=== PATIENT | male | born 1940 | race Caucasian/White ===

== ENCOUNTER 2016-08-10 10:33 | Inpatient (IN) ==
[2016-08-10] MEDS ORDERED: ASPIRIN PO STA (10:45)
[2016-08-10] MEDS ORDERED: ASPIRIN ONE (10:46)
[2016-08-10 11:03] LABS: MANUAL DIFF NEEDED? NO
[2016-08-10 11:11] LABS: BASO% 0.9 % (0.0-0.8); EOS# 0.25 X1000 (0.0-0.7); EOS% 3.9 % (0.0-10.0); HEMATOCRIT 36.4 % (42.0-52.0); HEMOGLOBIN 10.5 g/dL (14.0-18.0); IMM GRAN# 0.01 X1000 (0.0-0.04); IMM GRAN% 0.2 % (0.0-0.5); LYMPH# 1.82 X1000 (1.2-3.4); LYMPH% 28.4 % (20.5-51.1); MCH 21.3 PG (27-31); MCHC 28.8 g/dL (33-37); MCV 73.7 FL (81-99); MONO# 0.78 X1000 (0.11-0.59); MONO% 12.2 % (1.7-9.3); MPV 9.1 FL (7.4-10.4); NEUT% 54.4 % (42.2-75.2); PLT 210 X1000 (130-400); RBC 4.94 XMIL (4.7-6.1)
[2016-08-10 11:21] LABS: INR 1.05 (0.86-1.15)
--- NOTE | 2016-08-10 11:27 | EKG Report ---
Test Performed on : 08/10/2016 10:36:34 AM Test Reason : CP Blood Pressure : / mmHG Vent. Rate : 081 BPM Atrial Rate : 081 BPM P-R Int : 148 ms QRS Dur : 106 ms QT Int : 426 ms P-R-T Axes : 063 046 002 degrees QTc Int : 494 ms Normal sinus rhythm. Inferior infarct (cited on or before 20-OCT-2010) Abnormal ECG When compared with ECG of 20-OCT-2010 14:22, QT has lengthened Unconfirmed Result
[2016-08-10 11:35] LABS: ALBUMIN 4.2 g/dL (3.5-5.0); CALCIUM 8.8 mg/dL (8.8-10.2); POTASSIUM 4.3 mmol/L (3.5-5.1); TOTAL BILIRUBIN 0.4 mg/dL (0.20-1.00); TOTAL PROTEIN 6.5 g/dL (6.3-8.3)
--- NOTE | 2016-08-10 11:45 | Diag Imaging Result Document ---
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 Overall, there has been no significant change. IMPRESSION: No acute disease.
--- NOTE | 2016-08-10 12:26 | PROVIDER DOCUMENTATION ---
This chart was entered by Ed Liu Scribe, acting as scribe for Lety Koch MD. HPI-Chest Pain - General Chief Complaint: Chest Pain Stated Complaint: CHEST PAIN Time Seen by Provider: 08/10/16 10:50 Source: patient Allergies/Adverse Reactions: Patient Allergies Allergy/AdvReac Type Severity Reaction Status Date / Time Penicillins Allergy HIVES Verified 08/10/16 10:39 Tetanus Vaccines and Toxoid Allergy HIVES Verified 08/10/16 10:39 Home Medications: Home Medication List Medication Instructions Recorded Confirmed Last Taken Type Clopidogrel [Plavix] 75 mg PO DAILY 08/10/16 08/10/16 Unknown History Diclofenac Na D.r. [Voltaren] 75 mg PO BID 08/10/16 08/10/16 Unknown History Metoprolol Succinate E.r. [Toprol 100 mg PO DAILY 08/10/16 08/10/16 Unknown History Xl] Pantoprazole [Protonix] 40 mg PO DAILY 08/10/16 08/10/16 Unknown History SIMVAstatin [Zocor] 40 mg PO HS 08/10/16 08/10/16 Unknown History Valsartan/Hydrochlorothiazide 1 tab PO DAILY 08/10/16 08/10/16 Unknown History [Valsartan-Hctz 160-12.5 mg Tab] - History of Present Illness-CP Nature of Presenting Problem: Cardiac Stent and DE history presents to er with cc of chest pain. Reports first episode happenend on wednesday resolved after one nitro. Reports woke up this am at 0400 having sharp pressure with diaphoresis took 2 nitro resolved until 0600 came back and then pt took 1 more nitro and reports pain has still resovled. Last cardiac cath 12 years ago. Last stress test 12 years ago. Denies sob,n,v. Location: reports: central Chest Pain Radiation: reports: no radiation Quality of Pain: reports: pressure, sharp Severity in ED: mild Onset/Duration: 2 days ago Timing: intermittent Nitro Today/Relief: 0.4 mg x 3 Aspirin Treatment Today: no aspirin today Similar Symptoms Previously?: Yes Recently Seen Here or By Another Healthcare Provider: No Review of Systems - Adult - REVIEW OF SYSTEMS - ADULT Constitutional: denies: chills, fever, fatique Eyes: reports: no symptoms reported Ears, Nose, Mouth & Throat: reports: no symptoms reported Cardiovascular: reports: chest pain. denies: irregular heart rate, orthopnea, syncope Respiratory: reports: no symptoms reported Gastrointestinal: denies: abdominal pain, diarrhea, nausea, vomiting Genitourinary: reports: no symptoms reported Musculoskeletal: reports: no symptoms reported Integumentary: reports: no symptoms reported Neurological: reports: no symptoms reported Psychiatric: reports: no symptoms reported Endocrine: reports: no symptoms reported Hematologic/Lymphatic: reports: no symptoms reported Allergic/Immunologic: reports: no symptoms reported All Other Systems: Reviewed and Negative Past History - Adult - PAST MEDICAL HISTORY-ADULT Review of Records: reports: Nursing Assessment Review, Medications Reviewed Cardiovascular: reports: HTN, hyperlipidemia, DE Respiratory: reports: COPD Endocrine/Immune: reports: Diabetes - PRIOR SURGERIES/PROCEDURES Surgical/Procedure History: reports: cardiac stent - IMMUNIZATION STATUS Childhood Immunizations: See Nurse Assessment Flu Vaccine: See Nurse Assessment - SOCIAL HISTORY Smoking: cigarettes, less than 1 pack/day Provider spent 3-5 mins advising pt. on dangers of tobacco.: Discussed manners to quit use, and f/u contacts for add'l counseling. Substance Use: none/never Physical Exam-General - PHYSICAL EXAM-ADULT Initial Vital Signs Reviewed: Yes - CONSTITUTIONAL General Appearance: appears well, alert, no apparent distress - EYES Eyes: PERRL/EOMI - HEAD, EARS, NOSE, MOUTH & THROAT HENMT: moist mucous membranes - NECK Neck: non-tender, full range of motion, supple, normal inspection - RESPIRATORY Respiratory: chest non-tender, lungs clear, normal breath sounds, no pleuratic chest pain, no respiratory distress, no accessory muscle use, other (well healed surgical scar) - CARDIOVASCULAR Cardiovascular: regular rate, rhythm - GASTROINTESTINAL (ABDOMEN) Abdominal Exam: non tender, soft, no organomegaly, no pulsatile mass - MUSCULOSKELETAL Back Exam: normal inspection, no CVA tenderness, no vertebral tenderness Extremity: normal range of motion, non-tender, normal gait - SKIN Integumentary: normal color, normal turgor, warm/dry - NEUROLOGIC Neurologic: grossly normal - PSYCHIATRIC Psych/Mental Status: normal mood/affect, normal thought content, normal thought process, oriented x 3 Progress - PLAN OF CARE/RESULTS Progress/Plan/Lab Results: Vital Signs - 8 hr 08/10/16 10:35 08/10/16 11:31 08/10/16 12:00 Pulse Rate 65 62 60 Respiratory Rate 20 16 16 Blood Pressure 156/79 134/76 139/77 O2 Sat by Pulse Oximetry 95 95 96 Laboratory Results - last 24 hr 08/10/16 08/10/16 08/10/16 10:58 10:58 10:58 WBC RBC Hgb Hct MCV MCH MCHC RDW Std Deviation Plt Count MPV Immature Gran % (Auto) Neut % (Auto) Lymph % (Auto) Ford % (Auto) Eos % (Auto) Baso % (Auto) Immature Gran # (Auto) Neut # (Auto) Lymph # (Auto) Ford # (Auto) Eos # (Auto) Baso # (Auto) PT INR APTT (Factor Assay) Sodium 137 Potassium 4.3 Chloride 100 Carbon Dioxide 25 Anion Gap 12 BUN 21 Creatinine 1.3 H Estimated GFR/1.73 m2 54 BUN/Creatinine Ratio 16 Glucose 90 Calculated Osmolality 276 Calcium 8.8 Magnesium 2.0 Total Bilirubin 0.40 AST 18 ALT 13 Alkaline Phosphatase 66 Creatine Kinase 150 Troponin T 0.129 H Uyi-N-Inaptumdyuf Pept 2082 H Total Protein 6.5 Albumin 4.2 Globulin 2.0 Albumin/Globulin Ratio 2.0 08/10/16 08/10/16 10:58 10:58 WBC 6.40 RBC 4.94 Hgb 10.5 L Hct 36.4 L MCV 73.7 L MCH 21.3 L MCHC 28.8 L RDW Std Deviation 19.4 H Plt Count 210 MPV 9.1 Immature Gran % (Auto) 0.2 Neut % (Auto) 54.4 Lymph % (Auto) 28.4 Ford % (Auto) 12.2 H Eos % (Auto) 3.9 Baso % (Auto) 0.9 H Immature Gran # (Auto) 0.01 Neut # (Auto) 3.48 Lymph # (Auto) 1.82 Ford # (Auto) 0.78 H Eos # (Auto) 0.25 Baso # (Auto) 0.06 PT 14.0 INR 1.05 APTT (Factor Assay) 36.0 Sodium Potassium Chloride Carbon Dioxide Anion Gap BUN Creatinine Estimated GFR/1.73 m2 BUN/Creatinine Ratio Glucose Calculated Osmolality Calcium Magnesium Total Bilirubin AST ALT Alkaline Phosphatase Creatine Kinase Troponin T Nju-C-Kpoutgkxnwr Pept Total Protein Albumin Globulin Albumin/Globulin Ratio Orders Category Date Time Status Cardiac Monitoring DIRECTED Care 08/10/16 10:45 Active Oxygen Therapy- ED Nursing DIRECTED Care 08/10/16 10:45 Active Saline Loc NOW Care 08/10/16 10:45 Active CHEST-PORTABLE [RAD] Stat Exams 08/10/16 10:45 Draft CBC WITH ELECTRONIC DIFF [HEME] Stat Lab 08/10/16 10:58 Completed CK PROFILE [SP CHEM] Stat Lab 08/10/16 10:58 Completed COMPREHENSIVE METABOLIC PANEL [CHEM] Stat Lab 08/10/16 10:58 Completed MAGNESIUM [CHEM] Stat Lab 08/10/16 10:58 Completed PRO B-NATRIURETIC PEPTIDE Stat Lab 08/10/16 10:58 Completed PROTIME WITH INR PL [COAG] Stat Lab 08/10/16 10:[address] [COAG] Stat Lab 08/10/16 10:58 Completed TROPONIN T Stat Lab 08/10/16 10:58 Completed Aspirin Med 08/10/16 10:46 Discontinued 325 mg .ROUTE .STK-MED ONE Aspirin Med 08/10/16 10:45 Discontinued 325 mg PO STAT STA EKG [EKG] Stat Ther 08/10/16 10:40 Ordered EKG [EKG] Stat Ther 08/10/16 10:45 Draft Result Diagrams: 08/10/16 10:58 08/10/16 10:58 - XRAY 1 XRAY: Bilateral XRAY Study: Chest Impression: Normal XRAY Interpretation: nad (Malachi) - CONSULTS/PCP/HOSPITALIST Notification #1 *Consult/PCP/Hospitalist*: Time Discussed: 12:20 Consult Disposition: Admit (to [facility]) #2 Consult: Time Discussed: 12:23 Consult Disposition: Will see in ED Departure - Departure Time of Disposition Decision: 12:24 DIAGNOSIS: Elevated troponin Chest pain Qualifiers: Chest pain type: unspecified Qualified Code(s): R07.9 - Chest pain, unspecified Disposition: ADMITTED INPATIENT 09 Certified Medical Emergency: Emergent Condition: Stable Referrals and Follow-Ups: Salomón Bowman MD [Primary Care Provider] - This chart was documented by the indicated scribe, (Ed Liu Scribe) and accurately reflects the services I performed and decisions made by me, Lety Koch MD, as attested by the provider's signature.
[2016-08-10] MEDS ORDERED: ZOFRAN IV PRN ×2 (13:13→18:49)
[2016-08-10] MEDS ORDERED: TYLENOL PO PRN ×2 (13:13→18:49)
--- NOTE | 2016-08-10 15:43 | ED EKG INTERP ---
This chart was entered by Ed Liu Scribe, acting as scribe for Lety Koch MD. EKG Interpretation - EKG Time of EKG reading by physician:: 14:57 EKG Read and Signed by:: Lety Koch EKG Interpretation (*Must complete 3 of following elements*): Abnormal ( inferior infarct age undetermined) Rate: 55 Rhythm: sinus diogo [place]: normal QRS: normal This chart was documented by the indicated scribe, (Ed Liu Scribe) and accurately reflects the services I performed and decisions made by fl, Lety Koch MD, as attested by the provider's signature.
--- NOTE | 2016-08-10 15:51 | EKG Report ---
Test Performed on : 08/10/2016 2:57:08 PM Test Reason : REPEAT Blood Pressure : / mmHG Vent. Rate : 055 BPM Atrial Rate : 055 BPM P-R Int : 156 ms QRS Dur : 106 ms QT Int : 476 ms P-R-T Axes : 057 039 000 degrees QTc Int : 455 ms Sinus bradycardia. Inferior infarct (cited on or before 20-OCT-2010) Abnormal ECG When compared with ECG of 10-AUG-2016 10:36, (Unconfirmed) No significant change was found Unconfirmed Result
[2016-08-10] MEDS ORDERED: PLAVIX PO SCH (17:00)
[2016-08-10] MEDS ORDERED: LOVENOX SUBQ ONE (17:00)
[2016-08-10] MEDS ORDERED: LOVENOX ONE (17:01)
--- NOTE | 2016-08-10 18:31 | HISTORY AND PHYSICAL ---
CHIEF COMPLAINT: Chest pain. HISTORY OF PRESENT ILLNESS: This is a very pleasant, 76-year-old male with a history of CAD, hypertension and glaucoma. He states that he had an onset of chest pain Wednesday. He described this as a pressure-type pain, something was sitting on his chest with generalized weakness and some shortness of breath. He was sitting still at that time. He took 1 nitroglycerin and pain was relieved within a few minutes. He did fine since until this morning. He states he was sitting and he had crushing chest pain with pressure with generalized weakness. He took 2 nitroglycerin at 1 time and then about an hour later took a 3rd nitroglycerin and pain subsided within a few minutes. He has had no recurrence. He does have a history of CAD having 8 MIs in the past, the last 1 being in 2004. He had PTCA multiple times with the last 2 procedures having 5 stents placed. He has not had cardiac followup in quite some time although he states he is compliant with his medications and his primary care physician, Dr. Bowman prescribes. Troponin was 0.129 with the next being 0.139. Cardiology was consulted and they wished the patient to be transferred to [facility] for a heart catheterization. PAST MEDICAL HISTORY: 1. Coronary artery disease status post [place] with PTCA and stent. 2. Hypertension. 3. Hyperlipidemia. 4. Gastroesophageal reflux. 5. Tobacco use. PAST SURGICAL HISTORY: Back surgery. SOCIAL HISTORY: He smokes daily, he has rare social alcohol. He works in [place] and he lives between [facility] and [place] with his son. ALLERGIES: Penicillin and tetanus which cause hives. HOME MEDICATIONS: Protonix 40 daily, Plavix 75 daily, Zocor 40 at bedtime, Toprol-XL 100 daily, Voltaren 75 b.i.d., valsartan/hydrochlorothiazide 160/12.5 daily. REVIEW OF SYSTEMS: A 14-point review of systems is discussed with the patient with pertinent positives stated in the HPI. He denied palpitations, syncope, dizziness, cough, fever, chills, PND, orthopnea, nausea, vomiting, diarrhea, constipation, black or bloody vomitus, black or bloody stools, hematuria, dysuria, frequency, urgency. PHYSICAL EXAMINATION: GENERAL: This is a 76-year-old male who is sitting up in the bed in no distress. VITAL SIGNS: Blood pressure is 135/74 with a heart rate of 67, respirations are 20, temperature is 97.8 degrees with saturations of 96-99% on 2 L nasal cannula. HEENT: Head is normocephalic, atraumatic. Pupils equal, round, react to light. EOMs are intact. Sclerae are anicteric. Mucous membranes are moist. NECK: Supple with trachea midline. CARDIOVASCULAR: Regular rate and rhythm. S1, S2 appreciated. PULMONARY: Breath sounds are clear with no increased work of breathing noted. GASTROINTESTINAL: Abdomen soft, nontender, nondistended with bowel sounds in all 4 quadrants. BACK: No CVAT. No spine tenderness. MUSCULOSKELETAL: Good range of motion of joints. NEUROLOGIC: He is alert and oriented x3 with cranial nerves 2-12 grossly intact. EXTREMITIES: No clubbing, cyanosis, or edema. Pulses are palpable x4. Calves are nontender. DIAGNOSTICS: WBC is 6.4 with hemoglobin 10.5, hematocrit 36.4, and platelets of 210,000. Sodium is 137, potassium 4.3, BUN 21, creatinine 1.3 with a glucose of 90. Troponin is 0.129 and 0.139. ProBNP is 2082. Chest x-ray reveals no acute disease. Pleural fibrosis in the left CVA. ASSESSMENT AND PLAN: 1. Chest pain. 2. Elevated troponin. 3. History of coronary artery disease. 4. Hyperlipidemia. 5. Hypertension. 6. Tobacco use. The patient will be admitted to CICU at [facility]. We will continue to trend troponins, monitor telemetry. Cardiology will be consulted. He will be evaluated on arrival to [facility]. We will continue his appropriate home medications. Will give Lovenox 1 mg/kg x1. Further medications can be per Dr. Jasso. He will be NPO after midnight. For DVT prophylaxis will use Lovenox. For GI prophylaxis will continue his Protonix. Further treatments pending hospital course. Dictated by HEIKE Morocho for Cuauhtemoc Adames MD cc: HEIKE Morocho MD
[2016-08-10] MEDS ORDERED: SALINE LOCK IV FLUID XX ONE (18:49)
--- NOTE | 2016-08-10 20:20 | CONSULTATION ---
ADMITTING IMPRESSION: 1. Unstable angina. 2. Extensive history of atherosclerotic coronary disease with history of multiple previous myocardial infarctions, multiple previous percutaneous coronary interventions the last 2004, and ECG evidence of prior inferior infarct. 3. Hypertension. 4. Hyperlipidemia. 5. Chronic cigarette use at a rate of 2 packs of cigarettes per day, ongoing. 6. Obesity. 7. Obstructive sleep apnea. PLAN: 1. Telemetry observation. 2. Lovenox 1 mg/kg subcutaneous given x1. 3. Continue anti-platelet therapy with aspirin and Plavix. 4. Continue statin and reassess lipid profile. 5. Serial cardiac enzymes. 6. Echocardiography. 7. Given clinical presentation, favor left heart catheterization with selective coronary angiography and possible coronary angioplasty/stent. The rationale for this approach was discussed with the patient along with potential hazards. Patient was also advised that should he need a coronary stent procedure that he would need to be transferred to [facility] for further care. Patient acknowledges and wishes to proceed. 8. Smoking cessation strongly advised. 9. I will cautiously add carvedilol as tolerated. HISTORY: This 76-year-old white male with past history of atherosclerotic coronary disease, hypertension, hyperlipidemia, obesity, obstructive sleep apnea and chronic cigarette use was admitted through the emergency room for further management of unstable angina. He has not had angina in several years. He last had Cardiology follow up about 3 years ago and had what sounds like a pharmacologic myocardial perfusion study that was reportedly negative. 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 While driving up from [place], he experienced some chest pressure substernally early Wednesday morning. He took a nitroglycerin and discomfort went away. Discomfort is exactly like what he has experienced with his heart in the past. This morning he had recurrence of such chest discomfort and it was more severe this time, discomfort characterized again as a substernal chest pressure typical of his angina. He took 2 sublingual nitroglycerin and discomfort persisted. He was he then took a 3rd nitroglycerin and discomfort went away. He went to the emergency room for evaluation and was subsequently admitted. At present, he is free of chest discomfort. He has been given Lovenox 1 mg/kg subcutaneous. Initial troponin was 0.12. PAST MEDICAL HISTORY: 1. Atherosclerotic coronary disease as outlined above. 2. Hypertension. 3. Hyperlipidemia. 4. Obesity. 5. Obstructive sleep apnea. 6. Chronic back disorder with history of 2 previous back surgeries. ALLERGIES: Penicillin. Tetanus vaccines. Toxoid. MEDICATIONS PRIOR TO ADMISSION: As listed. SOCIAL HISTORY: The patient is a . His 2nd in 2009. 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 He smokes 2 pack of cigarettes per day. He drinks occasional beer and relates they might drink a 12 pack of beer in a month. FAMILY HISTORY: Positive for coronary disease. REVIEW OF SYSTEMS: Pulmonary: Negative. Gastrointestinal: Negative. Constitutional: Negative. The remainder of review of systems is negative/noncontributory with 14 total systems reviewed. PHYSICAL EXAMINATION: GENERAL: Reveals an obese older white male, in no distress. VITAL SIGNS: Blood pressure 149/59, heart rate 68 and regular. There is no significant jugular venous distention. There are no carotid bruits. CHEST: Clear to auscultation. CARDIAC: Regular rate and rhythm without appreciable murmur or gallop. ABDOMEN: Obese and nontender. Bowel sounds audible. EXTREMITIES: Demonstrate trace pretibial edema. NEUROLOGIC: Reveals him to be alert and fully oriented. Speech is fluent. Moves all 4 extremities equally well. SKIN: Warm and dry. PSYCHIATRIC: Reveals mood to be appropriate. DIAGNOSTICS: Electrocardiogram demonstrates sinus rhythm and old anterior infarct. LABORATORY DATA: Troponin 0.12. cc: Mariano Yu MD
[2016-08-10] MEDS ORDERED: ZOCOR PO SCH (21:00)
[2016-08-10] MEDS: COREG PO SCH (23:10)
[2016-08-11 05:06] LABS: BASO% 1.2 % (0.0-0.8); EOS# 0.37 X1000 (0.0-0.7); EOS% 5.7 % (0.0-10.0); HEMATOCRIT 37.8 % (42.0-52.0); HEMOGLOBIN 10.9 g/dL (14.0-18.0); LYMPH# 1.92 X1000 (1.2-3.4); LYMPH% 29.4 % (20.5-51.1); MANUAL DIFF NEEDED? NO; MCH 21.7 PG (27-31); MCHC 28.8 g/dL (33-37); MCV 75.3 FL (81-99); MONO# 0.86 X1000 (0.11-0.59); MONO% 13.2 % (1.7-9.3); MPV 9.3 FL (7.4-10.4); NEUT% 50.5 % (42.2-75.2); PLT 207 X1000 (130-400); RBC 5.02 XMIL (4.7-6.1)
[2016-08-11 05:18] LABS: INR 1.02; PROTIME 10.7 Seconds (9.2-11.7); PTT 30.3 Seconds (22.0-36.0)
[2016-08-11 05:22] LABS: AGAP 13; ALBUMIN 3.9 g/dL (3.5-5.0); ALKALINE PHOSPHATASE 65 U/L (32-122); BUN 16 mg/dL (8-22); CALCIUM 8.8 mg/dL (8.8-10.2); CHLORIDE 103 mmol/L (98-107); COSMO 286; GOT 15 U/L (10-34); GPT 13 U/L (10-44); MAGNESIUM 2.2 mg/dL (1.5-2.7); POTASSIUM 4.5 mmol/L (3.5-5.1); SODIUM 143 mmol/L (136-145); TCO2 27 mmol/L (25-35); TOTAL BILIRUBIN 0.27 mg/dL (0.20-1.00); TOTAL PROTEIN 6.5 g/dL (6.3-8.3)
[2016-08-11 05:23] LABS: HDL 37 mg/dL (35-55); LDL 66 mg/dL; TRIGLYCERIDES 143 mg/dL (39-160); VLDL 29 mg/dL
--- NOTE | 2016-08-11 05:41 | EKG Report ---
Test Performed on : 08/10/2016 6:09:19 PM Test Reason : cp Blood Pressure : / mmHG Vent. Rate : 057 BPM Atrial Rate : 057 BPM P-R Int : 152 ms QRS Dur : 106 ms QT Int : 456 ms P-R-T Axes : 056 034 -66 degrees QTc Int : 443 ms Sinus bradycardia. with marked sinus arrhythmia. Inferior infarct (cited on or before 20-OCT-2010) Abnormal ECG When compared with ECG of 10-AUG-2016 14:57, (Unconfirmed) No significant change was found Confirmed by Najma KEN, Babak Garcia ([id number]) on 08/12/2016 5:36:59 PM
--- NOTE | 2016-08-11 06:59 | EKG Report ---
Test Performed on : 08/11/2016 06:43:08 AM Test Reason : prior to cath Blood Pressure : / mmHG Vent. Rate : 052 BPM Atrial Rate : 052 BPM P-R Int : 156 ms QRS Dur : 110 ms QT Int : 452 ms P-R-T Axes : 057 038 252 degrees QTc Int : 420 ms Sinus bradycardia. Inferior infarct (cited on or before 20-OCT-2010) Abnormal ECG When compared with ECG of 10-AUG-2016 18:09, (Unconfirmed) No significant change was found Confirmed by Najma KEN, Babak Garcia ([id number]) on 08/12/2016 5:41:14 PM
[2016-08-11] MEDS ORDERED: PRILOSEC PO SCH ×2 (07:00)
[2016-08-11] MEDS: COREG PO SCH (07:59)
[2016-08-11] MEDS ORDERED: PROTONIX PO SCH (09:00)
[2016-08-11] MEDS ORDERED: HYDROCHLOROTHIAZIDE PO SCH (09:00)
[2016-08-11] MEDS ORDERED: DIOVAN PO SCH ×2 (09:00)
[2016-08-11] MEDS ORDERED: ASPIRIN PO SCH ×2 (09:00)
[2016-08-11] MEDS ORDERED: PLAVIX PO SCH (09:00)
--- NOTE | 2016-08-11 11:18 | PROGRESS NOTE ---
DATE: 08/11/2016 SUBJECTIVE: The patient has no focal complaints. He is on BiPAP. Complaining of some shortness of breath, but other than that no major complaints and no further chest pain. OBJECTIVE: Vital Signs: Blood pressure 147/64, heart rate 65, respiratory rate 18, temperature 97.8 degrees, satting 98% on 2 L. Cardiovascular: Regular rate and rhythm. Pulmonary: Bilateral breath sounds. Clear to auscultation. GI: Soft, nontender, nondistended. Bowel sounds are positive. Extremity exam: No clubbing or cyanosis. Lymphatic exam: No peripheral edema. Neurological exam: Nonfocal. LABORATORY DATA: White count 6.5, hemoglobin and hematocrit is 10 and 37, creatinine is 1.1. PROBLEM LIST: 1. Unstable angina, non-ST elevation myocardial infarction. Plan for left heart catheterization today. He has been getting aspirin, Lovenox, beta franki. Further recommendations per left heart catheterization results. 2. Dyslipidemia. Continue statin therapy. 3. Hypertension appears to be well controlled. We will continue to monitor. Further recommendations pending clinical course. cc: Omid Silverman MD
[2016-08-11 12:02] VITALS: BP 160/64
[2016-08-11] MEDS ORDERED: HEPARIN 1000 UNITS/NS 2,000 UNIT/1,000 ML IV.SOLN ONE (12:23)
[2016-08-11] MEDS ORDERED: CLAVE TWINSITE 32 IN 11959 ONE (13:13)
[2016-08-11] MEDS ORDERED: VERSED ONE (13:37)
[2016-08-11] MEDS ORDERED: DILAUDID ONE (13:37)
--- NOTE | 2016-08-11 14:41 | CARDIAC CATH REPORT ---
PROCEDURE NAME: - DATE OF PROCEDURE: 08/11/2016. INDICATION FOR THE PROCEDURE: Non ST-elevation in a patient with previous history of coronary disease and PCI. PROCEDURES PERFORMED: 1. Left heart catheterization. 2. Selective coronary angiography. 3. Left ventriculogram. PROCEDURE IN DETAIL: Mr. Oneill was brought to the catheterization laboratory in fasting state. Informed consent was obtained. He was prepped and draped in the usual sterile fashion. Initial attempts were made at radial artery catheterization; however, he did not have very good pulses in the right radial artery despite having an adequate Jensen's test. That site was abandoned. Then, we turned attention to the right femoral artery. An area over the right femoral artery was anesthetized and cannulated with a 5-[place] sheath via modified Seldinger technique. Catheters were introduced. Hemodynamic measurements made in the ascending thoracic aorta. Coronary angiography was performed in multiple views using JR4 and JL4 diagnostic catheters. Left heart catheterization and left ventriculogram was performed using the JR4. FINDINGS: 1. The left main appears to have distal 30% disease. 2. Left anterior descending has mild luminal irregularities in the proximal mid and distal vessel. There does appear to be severe ostial disease noted in the very small high diagonal. 3. Circumflex has mild luminal irregularities noted in the proximal and mid vessel, as well as a relatively hazy area and segment of the mid vessel. This may involve a dissection. It does appear to be a severe lesion in that area. Further on in the circumflex, it appears to have mild luminal irregularities. 4. Right coronary is noted to be stented from the early proximal vessel into the late mid vessel. There does appear to be diffuse in-stent stenosis throughout this with some areas as significant as 50%. There do not appear to be any severe lesions noted within the stented segment. The distal portion of the vessel has [id number] diffuse disease. 5. Left ventriculogram demonstrated an EF of what appeared to be 35% with hypokinesis of the inferior wall. 6. Aortic blood pressure is 135/57. LVEDP was 138/13 with a mean of 22. ASSESSMENT: Mr. Oneill is a 76-year-old white male with a history of coronary disease and percutaneous coronary intervention, who presented with a non ST-elevation myocardial infarction. PLAN: He does appear to have a severe lesion noted in the circumflex. We will pull the sheath over here, and he will plan to transfer over to [facility] for consideration for PCI. We will continue him on his aspirin, his statin, beta-franki and Plavix. Further recommendations to be provided by Dr. Yu, who is his primary weathercaster in the hospital. cc: Osmar Raya MD
--- NOTE | 2016-08-13 06:43 | DISCHARGE SUMMARY ---
ADMISSION DATE: 08/10/2016 DISCHARGE DATE: 08/11/2016 PROCEDURE: Cardiac catheterization. CONSULTATIONS: Dr. Osmar Raya. ADMISSION DIAGNOSIS: Non ST elevation DC. HISTORY AND HOSPITAL COURSE: Briefly, this 76-year-old male presenting with chest pressure, history of CAD status post PCI. He had an elevated troponin. I think he presented at [facility] initially and was transferred to [facility] for cardiac cath. He had received aspirin and Lovenox. He underwent cardiac cath, which showed a significant lesion in the left circumflex. He was transferred to [place] for definitive therapy with PCI. Cardiac catheterization showed 30% disease left main circumflex with mild luminal irregularities that may involve dissection. There was a severe lesion in it but it was not measured. RCA had a 50% stenosis. The EF was only about 35%. He was sent to [place] for further management. cc: Omid Silverman MD [facility] Bowman MD
== END 2016-08-11 15:59 | disposition short-term general hospital (02) ==
LOC: P.ED 10:33 → SUATTDRO 10:34 → 3S 17:01
PROVIDERS: ATTEND Internal Medicine